=== PATIENT | male | born 1990 | race Caucasian/White ===

== ENCOUNTER 2016-08-22 13:57 | Emergency (ER) | payer OTHER ==
--- NOTE | 2016-08-22 14:35 | ED CLINICAL REPORT ---
Clinical Report - Physicians/Mid Levels [facility] [address] [place] [address] 08/22/2016 13:57 Patient: DA LANDIN Time Seen: 14:21; initial patient contact. Arrived- By private vehicle. Historian- patient. HISTORY OF PRESENT ILLNESS Chief Complaint: CHEST PAIN and DISCOMFORT. It is described as sharp, "pain" and well localized and it is described as located in the left chest area. At its maximum, severity described as moderate and 5 / 10. When seen in the E.D., severity described as moderate. This started just prior to arrival today : Right -sided tenderness and left mid- chest wall tenderness. The tenderness is well-localized. ( states heard pop while moving bed). and is still present but is better now. No nausea, vomiting, difficulty breathing or diaphoresis. The patient has had additional mild, stabbing, well localized, brief left-sided chest pain. No radiation. It has been exacerbated by movement and cough. No similar symptoms previously. Similar symptoms previously: None. Recent medical care: Not recently seen/assessed. REVIEW OF SYSTEMS No fever, chills or cough. All systems otherwise negative, except as recorded above. PAST HISTORY See nurses notes. Problems: Lumbar Strain. Alcohol Intoxication. Substance Abuse. Drug Poisoning. Sprain. Lung Disease. Chest Wall Pain. Corneal Foreign Body. Iritis. Contusion. Immunizations. Impacted Cerumen. Wheelchair Rental Clerk's Burn. Tetanus Status. Asthma. Medications: None. Allergies: None. SOCIAL HISTORY Smoker - current status unknown (cigarette)- less than 1/2 a pack per day. No drug use. ADDITIONAL NOTES The nursing notes have been reviewed with agreement regarding the chief complaint, HPI, ROS, PMH and patient medications and allergies. PHYSICAL EXAM Vital Signs: 08/22/2016 14:16 BP: 112/78. HR: 73. RR: 16. O2 saturation: 100%. Temp: 97.9 F. Pain level now: 8/10. Have been reviewed. Appearance: Alert. Oriented X3. No acute distress. Eyes: Pupils equal, round and reactive to light. Eyes normal inspection. ENT: Ears normal. Neck: Normal inspection. Neck supple. CVS: Normal heart rate and rhythm. Heart sounds normal. Pulses normal. Respiratory: No respiratory distress. Chest pain reproducible with palpation of the costal cartilage, costochondral junction and anterior chest wall, with movement of the trunk and with deep breathing. Breath sounds normal. Abdomen: Soft and nontender. Bowel sounds normal. PROGRESS AND PROCEDURES Course of Care: Patient is stable. Physical exam findings are improved. Symptoms better. CLINICAL IMPRESSION Costochondritis INSTRUCTIONS No strenuous activity for three days until better. No dietary restrictions. (HOWARD wrap for comfort as needed.). Warnings: Further evaluation is necessary. GENERAL WARNINGS: Return or contact your physician immediately if your condition worsens or changes unexpectedly, if not improving as expected, or if other problems arise. Prescription Medications: Hydrocodone/APAP 5mg / 325mg: take 1 orally every 6 hours as needed for pain. Dispense five (5). No refill. Follow-up: Follow up with your doctor Wednesday if not better. Understanding of the discharge instructions verbalized by patient. (Electronically signed by Hedy Teague PA-C 08/22/2016 16:30)
--- NOTE | 2016-08-22 14:35 | ED NURSING NOTES ---
Clinical Report - Nurses [facility] [address] [place] [address] 08/22/2016 13:57 Patient: DA LANDIN TRIAGE Triage time 14:Aug 22 2016. Acuity: LEVEL 4. Chief Complaint: CHEST PAIN. Alert. No acute distress. --14:16 Chantal Timmons R.N. 14:16 08/22/16. BP: 112/78. HR: 73. RR: 16. O2 saturation: 100%. Temp: 97.9 F. Pain level now: 01/07. --14:16 Chantal Timmons R.N. Weight: 58.9 kg stated. Height/Length: 69 inches Per Patient. BMI: 19.2. --14:12 Chantal Timmons R.N. Medications None. --14:14 Chantal Timmons R.N. Allergies None. --14:14 Chantal Timmons R.N. History Arrived by private vehicle. Historian: patient. Accompanied by friend. This started just prior to arrival. No difficulty breathing, nausea, vomiting or cough. Treatment SUPERVISOR GRAIN AND YEAST PLANTS: None. PAST MEDICAL HX: Immunizations: up-to-date. SOCIAL HX: Current every day heavy tobacco smoker (cigarette)- less than 1 pack per day. Occasional alcohol use. No drug use. No infectious disease exposure. SELF HARM ASSESSMENT: A self harm assessment was performed. The patient answered "no" to the question "Do you have thoughts of harming or killing yourself?". FALL RISK ASSESSMENT: Fall risk assessment completed. No fall risk identified. NUTRITIONAL RISK ASSESSMENT: The nutritional risk assessment revealed no deficiencies. FUNCTIONAL ASSESSMENT: Functional assessment: no impairments noted. LEARNING NEEDS ASSESSMENT: The learning needs assessment revealed no barriers. ABUSE ASSESSMENT: Abuse assessment: The patient was asked "Do you feel safe in your home?". SKIN INTEGRITY ASSESSMENT: Skin integrity risk assessment completed. No skin integrity risk identified. --14:16 Chantal Timmons R.N. PROBLEMS: Lumbar Strain. Alcohol Intoxication. Drug Poisoning. Sprain. Lung Disease. Chest Wall Pain. Corneal Foreign Body. Iritis. Contusion. Burn. Immunizations. Impacted Cerumen. Public Relations Supervisor's Burn. Tetanus Status. Asthma. --14:14 Chantal Timmons R.N. Rib Fracture [RuleOut]. --14:14 Chantal Timmons R.N. ADDITIONAL SURGERIES: Dental Surgery. --14:15 Chantal Timmons R.N. Interventions ID band on patient. To room. --14:16 Chantal Timmons R.N. PHYSICAL ASSESSMENT GENERAL / NEURO / PSYCH: Alert. Oriented X 4. Appears in no acute distress. RESPIRATORY: Right -sided tenderness and left mid- chest wall tenderness. The tenderness is well-localized. ( states heard pop while moving bed). CVS: Capillary refill less than 2 seconds. GI / : Abdomen nontender. EXTREMITIES: No lower extremity edema. SKIN: Skin is warm and dry. --14:18 Chantal Timmons R.N. NURSING PROGRESS NOTES Patient gowned. Head of bed elevated. Patient identifiers checked. Call light placed in reach. Side rails up x 1. Bed placed in lowest position. Brakes of bed on. Patient ready for evaluation- chart flagged. --14:18 Chantal Timmons R.N. DISPOSITION / DISCHARGE Departure time: 14:48. Condition at departure: improved. The goals identified in the patient's plan of care were met. No learning barriers present. Discharge instructions provided and reviewed with the patient. Patient verbalized understanding. Written instructions provided in Georgian. The patient was discharged by the physician orthopedic assistant. He was discharged home and accompanied by foreign banknote teller. He left the Emergency Department ambulatory and via private vehicle. Branch Office Manager driving. Patient has no belongings. FALL RISK ASSESSMENT: Fall risk assessment completed. No fall risk identified. --14:48 Nisha Link R.N. 14:45 08/22/16. BP: 112/82 taken on the left arm, while sitting. HR: 77. RR: 18. O2 saturation: 99%. Temp: 97.9 F. Pain level now: 5/10. Additional comments: pt states "minor pain", 10, ribs. . --14:48 Nisha Link R.N. Locked/Released at 08/22/2016 15:58 by Chantal Timmons R.N.
--- NOTE | 2016-08-22 14:35 | ED NURSING NOTES ---
Clinical Report - Nurses [facility] [address] [place] [address] 08/22/2016 13:57 Patient: DA LANDIN TRIAGE Triage time 14:Aug 22 2016. Acuity: LEVEL 4. Chief Complaint: CHEST PAIN. Alert. No acute distress. --14:16 Chantal Timmons R.N. 14:16 08/22/16. BP: 112/78. HR: 73. RR: 16. O2 saturation: 100%. Temp: 97.9 F. Pain level now: 01/07. --14:16 Chantal Timmons R.N. Weight: 58.9 kg stated. Height/Length: 69 inches Per Patient. BMI: 19.2. --14:12 Chantal Timmons R.N. Medications None. --14:14 Chantal Timmons R.N. Allergies None. --14:14 Chantal Timmons R.N. History Arrived by private vehicle. Historian: patient. Accompanied by friend. This started just prior to arrival. No difficulty breathing, nausea, vomiting or cough. Treatment ACCESS SERVICES REPRESENTATIVE: None. PAST MEDICAL HX: Immunizations: up-to-date. SOCIAL HX: Current every day heavy tobacco smoker (cigarette)- less than 1 pack per day. Occasional alcohol use. No drug use. No infectious disease exposure. SELF HARM ASSESSMENT: A self harm assessment was performed. The patient answered "no" to the question "Do you have thoughts of harming or killing yourself?". FALL RISK ASSESSMENT: Fall risk assessment completed. No fall risk identified. NUTRITIONAL RISK ASSESSMENT: The nutritional risk assessment revealed no deficiencies. FUNCTIONAL ASSESSMENT: Functional assessment: no impairments noted. LEARNING NEEDS ASSESSMENT: The learning needs assessment revealed no barriers. ABUSE ASSESSMENT: Abuse assessment: The patient was asked "Do you feel safe in your home?". SKIN INTEGRITY ASSESSMENT: Skin integrity risk assessment completed. No skin integrity risk identified. --14:16 Chantal Timmons R.N. PROBLEMS: Lumbar Strain. Alcohol Intoxication. Drug Poisoning. Sprain. Lung Disease. Chest Wall Pain. Corneal Foreign Body. Iritis. Contusion. Burn. Immunizations. Impacted Cerumen. Cooker Chip's Burn. Tetanus Status. Asthma. --14:14 Chantal Timmons R.N. Rib Fracture [RuleOut]. --14:14 Chantal Timmons R.N. ADDITIONAL SURGERIES: Dental Surgery. --14:15 Chantal Timmons R.N. Interventions ID band on patient. To room. --14:16 Chantal Timmons R.N. PHYSICAL ASSESSMENT GENERAL / NEURO / PSYCH: Alert. Oriented X 4. Appears in no acute distress. RESPIRATORY: Right -sided tenderness and left mid- chest wall tenderness. The tenderness is well-localized. ( states heard pop while moving bed). CVS: Capillary refill less than 2 seconds. GI / : Abdomen nontender. EXTREMITIES: No lower extremity edema. SKIN: Skin is warm and dry. --14:18 Chantal Timmons R.N. NURSING PROGRESS NOTES Patient gowned. Head of bed elevated. Patient identifiers checked. Call light placed in reach. Side rails up x 1. Bed placed in lowest position. Brakes of bed on. Patient ready for evaluation- chart flagged. --14:18 Chantal Timmons R.N. DISPOSITION / DISCHARGE Departure time: 14:48. Condition at departure: improved. The goals identified in the patient's plan of care were met. No learning barriers present. Discharge instructions provided and reviewed with the patient. Patient verbalized understanding. Written instructions provided in Japanese. The patient was discharged by the physician administrative personal assistant. He was discharged home and accompanied by mannequin sander and finisher. He left the Emergency Department ambulatory and via private vehicle. Tutorial Laboratory Supervisor driving. Patient has no belongings. FALL RISK ASSESSMENT: Fall risk assessment completed. No fall risk identified. --14:48 Nisha Link R.N. 14:45 08/22/16. BP: 112/82 taken on the left arm, while sitting. HR: 77. RR: 18. O2 saturation: 99%. Temp: 97.9 F. Pain level now: 5/10. Additional comments: pt states "minor pain", 10, ribs. . --14:48 Nisha Link R.N. Locked/Released at 08/22/2016 15:58 by Chantal Timmons R.N.
--- NOTE | 2016-08-22 16:30 | ED DISCHARGE INSTRUCTIONS ---
Patient: DA LANDIN General Instructions [facility] VisitID: [id number] [place] [address] 26y, M Registration Date/Time: 08/22/2016 Costochondritis INSTRUCTIONS No strenuous activity for three days until better. No dietary restrictions. (HOWARD wrap for comfort as needed.). Warnings: Further evaluation is necessary. GENERAL WARNINGS: Return or contact your physician immediately if your condition worsens or changes unexpectedly, if not improving as expected, or if other problems arise. Prescription Medications: Hydrocodone/APAP 5mg / 325mg: take 1 orally every 6 hours as needed for pain. Dispense five (5). No refill. Follow-up: Follow up with your doctor Wednesday if not better. Understanding of the discharge instructions verbalized by patient. ADDITIONAL INFORMATION Chest Wall Pain: Costochondritis The chest pain that you have had today is caused by Costochondritis. This condition is due to an inflammation of the cartilage joining the ribs to the breastbone. It is not caused by heart or lung problems. Although the exact cause for costochondritis is not known, it often occurs during times of emotional stress. It can be painful, but it is not dangerous. It usually disappears within one to two weeks, but may recur. Rarely, a more serious condition may cause symptoms similar to costochondritis; therefore, watch for the warning signs listed below. Home Care: If you feel that emotional stress is a cause of your condition, try to identify sources of that stress. It may not be obvious! Learn ways to deal with the stress in your life such as regular exercise, muscle relaxation, meditation, or simply taking time out for yourself. For more information about this, consult your doctor or go to a local bookstore and review books and tapes available on the subject of stress reduction. You may use acetaminophen (Tylenol) or ibuprofen (Motrin, Advil) to control pain, unless another pain medicine was prescribed. [ NOTE: If you have liver disease or ever had a stomach ulcer, talk with your doctor before using these medicines.] The use of heat (hot wet compress or heating pad) with or without local analgesic creams (Deep Heat Rub, Branden Jansen) will be helpful to reduce pain. Follow Up with your doctor as directed or sooner if you do not start to improve within the next two days. Get Prompt Medical Attention if any of the following occur: A change in the type of pain: if it feels different, becomes more severe, lasts longer, or spreads into your shoulder, arm, neck, jaw or back Shortness of breath or increased pain with breathing Weakness, dizziness, or fainting Cough with dark colored sputum (phlegm) or blood Abdominal pain Dark red or black stools Fever of 100.4F (38C) or higher, or as directed by your healthcare provider You have been given the following additional information: Chest Wall Pain, Costochondritis No strenuous activity for three days until better. (Electronically signed by Hedy Teague PA-C 08/22/2016 16:30)
--- NOTE | 2016-08-22 16:30 | ED MED RECONCILIATION SUMMARY ---
Patient: DA LANDIN Medication Reconciliation Report [facility] VisitID: [id number] [address] [place] [address] 26y, M Registration Date/Time: 08/22/2016 Weight: 58.9 kg Height/Length: 69 in. BMI: 19.2 ALLERGIES: None The patient's Home Medications are listed below: NONE. The source(s) of the original Home Medication information: Not obtained. The following Medications were given to the patient in the Emergency Department: None. The following Medications were prescribed to the patient: Hydrocodone/APAP 5mg / 325mg: take 1 orally every 6 hours as needed for pain. Dispense five (5). No refill. -- Hedy Teague PA-C
--- NOTE | 2016-08-22 16:30 | ED MAR SUMMARY ---
..... Medication Administration Record [facility] [address] [id number] Patient: MUSHTAQ DA Sung Carmen Visit ID: [id number] 26y, M Weight: 58.9 kg Height/Length: 69 in BMI: 19.2 ALLERGIES: None
--- NOTE | 2016-08-22 16:30 | ED MED RECONCILIATION SUMMARY ---
Patient: DA LANDIN Medication Reconciliation Report [facility] VisitID: [id number] [address] [place] [address] 26y, M Registration Date/Time: 08/22/2016 Weight: 58.9 kg Height/Length: 69 in. BMI: 19.2 ALLERGIES: None The patient's Home Medications are listed below: NONE. The source(s) of the original Home Medication information: Not obtained. The following Medications were given to the patient in the Emergency Department: None. The following Medications were prescribed to the patient: Hydrocodone/APAP 5mg / 325mg: take 1 orally every 6 hours as needed for pain. Dispense five (5). No refill. -- Hedy Teague PA-C
--- NOTE | 2016-08-22 16:30 | ED MAR SUMMARY ---
..... Medication Administration Record [facility] [address] [id number] Patient: MUSHTAQ DA Sung Carmen Visit ID: [id number] 26y, M Weight: 58.9 kg Height/Length: 69 in BMI: 19.2 ALLERGIES: None
== END 2016-08-22 14:48 | disposition home or self-care (01) ==
LOC: ED SRH 13:57
DX: M94.0 Chondrocostal junction syndrome [Tietze] (principal); J45.909 Unspecified asthma, uncomplicated; F17.210 Nicotine dependence, cigarettes, uncomplicated

== ENCOUNTER 2016-11-17 22:03 | Emergency (ER) | payer OTHER ==
--- NOTE | 2016-11-17 23:42 | ED CLINICAL REPORT ---
Clinical Report - Physicians/Mid Levels [facility] [address] [place] [address] 11/17/2016 22:03 Patient: DA LANDIN Time Seen: 2210; initial patient contact. Arrived- By private vehicle. Historian- patient. HISTORY OF PRESENT ILLNESS Chief Complaint: DENTAL PAIN. This started about 2 days and is still present and worsening. It was gradual in onset and has been constant. Pain described as moderate. The patient has had toothache and jaw pain. No swollen jaw or face or facial pain. Similar symptoms previously: Many times. Recent medical care: Not recently seen/assessed. REVIEW OF SYSTEMS No fever or difficulty breathing. All systems otherwise negative, except as recorded above. PAST HISTORY Costochondritis. Lumbar Strain. Alcohol Intoxication. Substance Abuse. Drug Poisoning. Sprain. Lung Disease. Chest Wall Pain. Corneal Foreign Body. Iritis. Contusion. Burn. Immunizations. Impacted Cerumen. State Federal Relations Deputy Director's Burn. Tetanus Status. Asthma. Rib Fracture SURGERIES: Dental Surgery. SOCIAL HISTORY Current every day smoker. ADDITIONAL NOTES The nursing notes have been reviewed. PHYSICAL EXAM Vital Signs: 11/17/2016 22:11 BP: 154/95. HR: 66. RR: 18. O2 saturation: 99%. Temp: 98.1 F. Pain level now: 10/10. Have been reviewed. Hypertensive. Heart rate normal. Respiratory rate normal. Temperature normal. Oxygen saturation normal. Appearance: Alert. No acute distress. Head: Normal external inspection. ENT: Mild, extensive dental decay. Moderate dental tenderness of multiple teeth with gingival tenderness. No gingival induration, swelling or fluctuance. Pharynx normal. Gums normal. No trismus present. Neck: No adenopathy. Skin: No rash. Neuro: Oriented X 3. PROGRESS AND PROCEDURES Dental Nerve Block: Time: 23:41. Per protocol, time-out completed immediately before the procedure. Inferior Alveolar Block. Procedure performed bilaterally. Landmarks were identified. Topical anesthetic applied. Total volume of 5 mL 2% Lidocaine and 0.5% Marcaine infiltrated using a 25-gauge needle. Patient cooperative during procedure. No complications encountered. Excellent anesthesia achieved. Procedure repeated on opposite side. Course of Care: Complete resolution of pain after dental blocks. Disposition: Discharged home in good and improved condition. Condition: good. CLINICAL IMPRESSION Moderate dental pain. Dental caries (localized) INSTRUCTIONS Do not work tomorrow. Prescription Medications: Hydrocodone/APAP 5mg / 325mg: take 1 orally every 6 hours as needed for pain. Dispense fifteen (15). No refill. Amoxicillin 500 mg capsules: take 1 orally every 12 hours for 7 days. No refills. Follow-up: Screening today revealed the patient's blood pressure to be in the hypertensive range. The patient should follow up with a primary care provider for blood pressure management. Follow-up with: [facility], , , , , , Follow up in about two days. Call for an appointment. (Electronically signed by Geovanny Toscano Dr. 11/18/2016 0:48)
--- NOTE | 2016-11-17 23:42 | ED NURSING NOTES ---
Clinical Report - Nurses [facility] [address] [place] [address] 11/17/2016 22:03 Patient: DA LANDIN TRIAGE Triage time 22:11. Acuity: LEVEL 4. Chief Complaint: LEFT LOWER TOOTHACHE and JAW PAIN. --22:18 Keshia Sandoval R.N. 22:11 11/17/16. BP: 154/95 taken on the left arm, while sitting. HR: 66 (regular and normal rate). RR: 18 (regular and unlabored). O2 saturation: 99% on room air. Temp: 98.1 F (oral). Pain level now: 03/09. --22:18 Keshia Sandoval R.N. Weight: 58.9 kg stated. Height/Length: 69 inches Per Patient. BMI: 19.2. --22:14 Keshia Sandoval R.N. Medications Amoxicillin Oral (Capsule 500 mg) 1 capsule, 8 hours. --22:17 Keshia Sandoval R.N. Allergies None. --22:16 Keshia Sandoval R.N. History Arrived by private vehicle. Historian: patient. Unaccompanied. Primary physician ([facility]). This started last night. ( c/o LL jaw pain radiating to right lower jaw and wraps up to left ear. Dental work done 1 month ago on the right did not complete round of amoxicillin). He has had a toothache. PAST MEDICAL HX: Immunizations: up-to-date. SOCIAL HX: Heavy tobacco smoker (cigarette)- less than 1 pack per day. Occasional alcohol use. No drug use. ABUSE ASSESSMENT: No report of abuse. SELF HARM ASSESSMENT: A self harm assessment was performed. The patient answered "no" to the question "Have you recently felt down, depressed, or hopeless?", "Have you noticed less interest or pleasure in doing things?", "Do you have thoughts of harming or killing yourself?", "Are you here because you tried to hurt yourself?", "Have you ever tried to hurt yourself before today?", "Have you recently had thoughts about harming or killing others?" and "Do you have any dangerous items in your possession?". FALL RISK ASSESSMENT: Fall risk assessment completed. No fall risk identified. NUTRITIONAL RISK ASSESSMENT: The nutritional risk assessment revealed no deficiencies. FUNCTIONAL ASSESSMENT: Functional assessment: no impairments noted. LEARNING NEEDS ASSESSMENT: The learning needs assessment revealed no barriers. SKIN INTEGRITY ASSESSMENT: Skin integrity risk assessment completed. No skin integrity risk identified. --22:18 Keshia Sandoval R.N. PROBLEMS: Costochondritis. Lumbar Strain. Alcohol Intoxication. Substance Abuse. Drug Poisoning. Sprain. Lung Disease. Chest Wall Pain. Corneal Foreign Body. Iritis. Contusion. Burn. Immunizations. Impacted Cerumen. Clinical Nursing Assistant's Burn. Tetanus Status. Asthma. --22:17 Keshia Sandoval R.N. Rib Fracture [RuleOut]. --22:17 Keshia Sandoval R.N. ADDITIONAL SURGERIES: Dental Surgery. --22:17 Keshia Sandoval R.N. Interventions ID band on patient. --22:18 Keshia Sandoval R.N. PHYSICAL ASSESSMENT Ambulatory to room. GENERAL / NEURO / PSYCH: Alert. Oriented X 4. Appears in pain. HEENT: Pupils equal, round and reactive to light. Pharynx within normal limits. Voice within normal limits. Mouth within normal limits upon inspection. Moderate dental tenderness of multiple teeth (left lower molar). Localized dental decay (left lower molar area). Mucous membranes are pink. RESPIRATORY: Respirations not labored. CVS: Capillary refill less than 2 seconds. SKIN: Skin is warm and dry. Normal skin turgor. --22:19 Keshia Sandoval R.N. NURSING PROGRESS NOTES Reassurance given to the patient. Two patient identifiers checked. Call light placed in reach. Side rails up x 1. Bed placed in lowest position. Brakes of bed on. Patient ready for evaluation- chart flagged. --22:19 Keshia Sandoval R.N. DISPOSITION / DISCHARGE Departure time: 2344. Condition at departure: improved and stable. No learning barriers present. Discharge instructions provided and reviewed with the patient. Reviewed medication(s) side effects, precautions, dosing and course information. Prescription(s) given to the patient. Reviewed referral to a dentist for followup. Work note given (1 day). Patient verbalized understanding. Written instructions provided in Turkmen. The patient was discharged home and unaccompanied at time of discharge. He left the Emergency Department ambulatory and via private vehicle. Patient driving. --23:52 Keshia Sandoval R.N. 23:50 11/17/16. HR: deferred. RR: deferred. O2 saturation: deferred. Temp: deferred. Pain level now deferred. --23:52 Keshia Sandoval R.N. Locked/Released at 11/17/2016 23:52 by Keshia Sandoval R.N.
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
--- NOTE | 2016-11-18 00:49 | ED MED RECONCILIATION SUMMARY ---
Patient: DA LANDIN Medication Reconciliation Report [facility] VisitID: [id number] [address] [place] [address] 26y, M Registration Date/Time: 11/17/2016 Weight: 58.9 kg Height/Length: 69 in. BMI: 19.2 ALLERGIES: None The patient's Home Medications are listed below: THE FOLLOWING MEDICATIONS NEED TO BE RECONCILED: Amoxicillin Oral (500 mg) 1 capsule, 8 hours The source(s) of the original Home Medication information: Not obtained. The following Medications were given to the patient in the Emergency Department: None. The following Medications were prescribed to the patient: Hydrocodone/APAP 5mg / 325mg: take 1 orally every 6 hours as needed for pain. Dispense fifteen (15). No refill. -- Geovanny Toscano Dr. Amoxicillin 500 mg capsules: take 1 orally every 12 hours for 7 days. No refills. -- Geovanny Toscano Dr.
--- NOTE | 2016-11-18 00:49 | ED MED RECONCILIATION SUMMARY ---
Patient: DA LANDIN Medication Reconciliation Report [facility] VisitID: [id number] [address] [place] [address] 26y, M Registration Date/Time: 11/17/2016 Weight: 58.9 kg Height/Length: 69 in. BMI: 19.2 ALLERGIES: None The patient's Home Medications are listed below: THE FOLLOWING MEDICATIONS NEED TO BE RECONCILED: Amoxicillin Oral (500 mg) 1 capsule, 8 hours The source(s) of the original Home Medication information: Not obtained. The following Medications were given to the patient in the Emergency Department: None. The following Medications were prescribed to the patient: Hydrocodone/APAP 5mg / 325mg: take 1 orally every 6 hours as needed for pain. Dispense fifteen (15). No refill. -- Geovanny Toscano Dr. Amoxicillin 500 mg capsules: take 1 orally every 12 hours for 7 days. No refills. -- Geovanny Toscano Dr.
--- NOTE | 2016-11-18 00:49 | ED DISCHARGE INSTRUCTIONS ---
Patient: DA LANDIN General Instructions [facility] VisitID: [id number] [place] [address] 26y, M Registration Date/Time: 11/17/2016 Moderate dental pain. Dental caries (localized) INSTRUCTIONS Do not work tomorrow. Prescription Medications: Hydrocodone/APAP 5mg / 325mg: take 1 orally every 6 hours as needed for pain. Dispense fifteen (15). No refill. Amoxicillin 500 mg capsules: take 1 orally every 12 hours for 7 days. No refills. Follow-up: Screening today revealed the patient's blood pressure to be in the hypertensive range. The patient should follow up with a primary care provider for blood pressure management. Follow-up with: [facility], , , , , , Follow up in about two days. Call for an appointment. ADDITIONAL INFORMATION Dental Pain A crack or cavity in the tooth, which exposes the sensitive inner area of the tooth can cause tooth pain. An infection in the gum or the root of the tooth can cause pain and swelling. The pain is often made worse by drinking hot or cold fluids, or biting on hard foods. Pain may spread from the tooth to the ear or jaw on the same side. Home Care: Avoid hot and cold foods and liquids since your tooth may be sensitive to temperature changes. If your tooth is chipped or cracked, or if there is a large open cavity, apply OIL OF CLOVES (available qcae-mfe-rjtnpdo in drug stores) directly to the tooth to reduce pain. Some pharmacies carry an fefp-prh-mbqzwxh "toothache kit." This contains a paste, which can be applied over the exposed tooth to decrease sensitivity. A cold pack on your jaw over the sore area may help reduce pain. You may use acetaminophen (Tylenol) or ibuprofen (Motrin, Advil) to control pain, unless another medicine was prescribed. [ NOTE: If you have chronic liver or kidney disease or ever had a stomach ulcer or GI bleeding, talk with your doctor before using these medicines.] If you have signs of an infection, an antibiotic will be given. Take it as directed. Follow-Up as directed with a dentist. Your pain may go away with the treatment given. However, only a dentist can fully evaluate and treat the cause and prevent the pain from coming back again. TOOTHACHE IS A SIGN OF DISEASE IN YOUR TOOTH AND SHOULD BE EXAMINED AND TREATED BY A DENTIST. Get Prompt Medical Attention if any of the following occur: Your face becomes swollen or red Pain worsens or spreads to the neck Fever over 100.4 F (38.0 C) Unusual drowsiness; headache or stiff neck; weakness or fainting Pus drains from the tooth Difficulty swallowing or breathing Dental Cavity A dental cavity is a pit or crater in the enamel surface of the tooth. This exposes the sensitive inner layer of the tooth and causes pain. If untreated, the cavity will get bigger and may cause an infection or abscess in the root of the tooth. An infection in the tooth is a much more serious problem and may require a root canal or removal of the entire tooth. The tooth pain may be made worse by drinking hot or cold fluids. It may spread from the tooth to the ear or jaw on the same side. Home Care: Avoid hot and cold foods, and liquids since your tooth may be sensitive to temperature changes. If your tooth is chipped or cracked, or if there is a large open cavity, apply OIL OF CLOVES (available egyx-dcj-lsgfewz in drug stores) directly to the tooth to reduce pain. Some pharmacies carry an qpry-emv-ilizdzn "toothache kit." This contains oil of cloves and a paste, which can be applied over the exposed tooth to decrease sensitivity. An ice pack on your jaw over the sore area may help to reduce pain. You may use acetaminophen (Tylenol) or ibuprofen (Motrin, Advil) to control pain, unless another pain medicine was prescribed. [ NOTE: If you have liver disease or ever had a stomach ulcer, talk with your doctor before using these medicines.] If you have signs of an infection, an antibiotic will be given. Take it as directed. Follow-Up with your dentist as directed. Although your pain may go away with the treatment given, only a dentist can fully evaluate and treat this problem to prevent further tooth damage. Get Prompt Medical Attention if any of the following occur: Redness or swelling of the face Pain worsens or spreads to the neck Fever over 100.5 F (38C) Unusual drowsiness; headache or stiff neck; weakness or fainting Pus drains from the tooth or gum Difficulty swallowing or breathing Hydrocodone Bitartrate, Acetaminophen Oral tablet What is this medicine? ACETAMINOPHEN; HYDROCODONE (a set a YUMIKO warren fen; lana droe KOE done) is a pain reliever. It is used to treat mild to moderate pain. How should I use this medicine? Take this medicine by mouth. Swallow it with a full glass of water. Follow the directions on the prescription label. If the medicine upsets your stomach, take the medicine with food or milk. Do not take more than you are told to take. Talk to your mechanic regarding the use of this medicine in children. This medicine is not approved for use in children. What side effects may I notice from receiving this medicine? Side effects that you should report to your doctor or health resident care associate as soon as possible: allergic reactions like skin rash, itching or hives, swelling of the face, lips, or tongue breathing problems confusion feeling faint or lightheaded, falls stomach pain yellowing of the eyes or skin Side effects that usually do not require medical attention (report to your doctor or health resident care associate if they continue or are bothersome): nausea, vomiting stomach upset What may interact with this medicine? alcohol antihistamines isoniazid medicines for depression, anxiety, or psychotic disturbances medicines for sleep muscle relaxants naltrexone narcotic medicines (opiates) for pain phenobarbital ritonavir tramadol What if I miss a dose? If you miss a dose, take it as soon as you can. If it is almost time for your next dose, take only that dose. Do not take double or extra doses. Where should I keep my medicine? Keep out of the reach of children. This medicine can be abused. Keep your medicine in a safe place to protect it from theft. Do not share this medicine with anyone. Selling or giving away this medicine is dangerous and against the law. Store at room temperature between 15 and 30 degrees C (59 and 86 degrees F). Protect from light. Keep container tightly closed. Throw away any unused medicine after the expiration date. Discard unused medicine and used packaging carefully. Pets and children can be harmed if they find used or lost packages. What should I tell my health care provider before I take this medicine? They need to know if you have any of these conditions: brain tumor Crohn's disease, inflammatory bowel disease, or ulcerative colitis drink more than 3 alcohol-containing drinks per day drug abuse or addiction head injury heart or circulation problems kidney disease or problems going to the bathroom liver disease lung disease, asthma, or breathing problems an unusual or allergic reaction to acetaminophen, hydrocodone, other opioid analgesics, other medicines, foods, dyes, or preservatives or trying to get breast-feeding What should I watch for while using this medicine? Tell your doctor or health resident care associate if your pain does not go away, if it gets worse, or if you have new or a different type of pain. You may develop tolerance to the medicine. Tolerance means that you will need a higher dose of the medicine for pain relief. Tolerance is normal and is expected if you take the medicine for a long time. Do not suddenly stop taking your medicine because you may develop a severe reaction. Your body becomes used to the medicine. This does NOT mean you are addicted. Addiction is a behavior related to getting and using a drug for a non-medical reason. If you have pain, you have a medical reason to take pain medicine. Your doctor will tell you how much medicine to take. If your doctor wants you to stop the medicine, the dose will be slowly lowered over time to avoid any side effects. You may get drowsy or dizzy when you first start taking the medicine or change doses. Do not drive, use machinery, or do anything that may be dangerous until you know how the medicine affects you. Stand or sit up slowly. There are different types of narcotic medicines (opiates) for pain. If you take more than one type at the same time, you may have more side effects. Give your health care provider a list of all medicines you use. Your doctor will tell you how much medicine to take. Do not take more medicine than directed. Call emergency for help if you have problems breathing. The medicine will cause constipation. Try to have a bowel movement at least every 2 to 3 days. If you do not have a bowel movement for 3 days, call your doctor or health resident care associate. Too much acetaminophen can be very dangerous. Do not take Tylenol (acetaminophen) or medicines that contain acetaminophen with this medicine. Many non-prescription medicines contain acetaminophen. Always read the labels carefully. Amoxicillin Trihydrate Oral tablet What is this medicine? AMOXICILLIN (a mox i ADÁN in) is a penicillin antibiotic. It is used to treat certain kinds of bacterial infections. It will not work for colds, flu, or other viral infections. How should I use this medicine? Take this medicine by mouth with a glass of water. Follow the directions on your prescription label. You may take this medicine with food or on an empty stomach. Take your medicine at regular intervals. Do not take your medicine more often than directed. Take all of your medicine as directed even if you think your are better. Do not skip doses or stop your medicine early. Talk to your mechanic regarding the use of this medicine in children. While this drug may be prescribed for selected conditions, precautions do apply. What side effects may I notice from receiving this medicine? Side effects that you should report to your doctor or health resident care associate as soon as possible: allergic reactions like skin rash, itching or hives, swelling of the face, lips, or tongue breathing problems dark urine redness, blistering, peeling or loosening of the skin, including inside the mouth seizures severe or watery diarrhea trouble passing urine or change in the amount of urine unusual bleeding or bruising unusually weak or tired yellowing of the eyes or skin Side effects that usually do not require medical attention (report to your doctor or health resident care associate if they continue or are bothersome): dizziness headache stomach upset trouble sleeping What may interact with this medicine? amiloride control pills chloramphenicol macrolides probenecid sulfonamides tetracyclines What if I miss a dose? If you miss a dose, take it as soon as you can. If it is almost time for your next dose, take only that dose. Do not take double or extra doses. Where should I keep my medicine? Keep out of the reach of children. Store between 68 and 77 degrees F (20 and 25 degrees C). Keep bottle closed tightly. Throw away any unused medicine after the expiration date. What should I tell my health care provider before I take this medicine? They need to know if you have any of these conditions: asthma kidney disease an unusual or allergic reaction to amoxicillin, other penicillins, cephalosporin antibiotics, other medicines, foods, dyes, or preservatives or trying to get breast-feeding What should I watch for while using this medicine? Tell your doctor or health resident care associate if your symptoms do not improve in 2 or 3 days. Take all of the doses of your medicine as directed. Do not skip doses or stop your medicine early. If you are diabetic, you may get a false positive result for sugar in your urine with certain brands of urine tests. Check with your doctor. Do not treat diarrhea with [id number]-[id number] products. Contact your doctor if you have diarrhea that lasts more than 2 days or if the diarrhea is severe and watery. You have been given the following additional information: Dental Pain Dental Cavity Hydrocodone Bitartrate, Acetaminophen Oral tablet Amoxicillin Trihydrate Oral tablet Do not work tomorrow. (Electronically signed by Geovanny Toscano Dr. 11/18/2016 0:48)
--- NOTE | 2016-11-18 00:49 | ED DISCHARGE INSTRUCTIONS ---
Patient: DA LANDIN General Instructions [facility] VisitID: [id number] [place] [address] 26y, M Registration Date/Time: 11/17/2016 Moderate dental pain. Dental caries (localized) INSTRUCTIONS Do not work tomorrow. Prescription Medications: Hydrocodone/APAP 5mg / 325mg: take 1 orally every 6 hours as needed for pain. Dispense fifteen (15). No refill. Amoxicillin 500 mg capsules: take 1 orally every 12 hours for 7 days. No refills. Follow-up: Screening today revealed the patient's blood pressure to be in the hypertensive range. The patient should follow up with a primary care provider for blood pressure management. Follow-up with: [facility], , , , , , Follow up in about two days. Call for an appointment. ADDITIONAL INFORMATION Dental Pain A crack or cavity in the tooth, which exposes the sensitive inner area of the tooth can cause tooth pain. An infection in the gum or the root of the tooth can cause pain and swelling. The pain is often made worse by drinking hot or cold fluids, or biting on hard foods. Pain may spread from the tooth to the ear or jaw on the same side. Home Care: Avoid hot and cold foods and liquids since your tooth may be sensitive to temperature changes. If your tooth is chipped or cracked, or if there is a large open cavity, apply OIL OF CLOVES (available sucm-vyf-xkpkksd in drug stores) directly to the tooth to reduce pain. Some pharmacies carry an okba-kwy-kxjkwiw "toothache kit." This contains a paste, which can be applied over the exposed tooth to decrease sensitivity. A cold pack on your jaw over the sore area may help reduce pain. You may use acetaminophen (Tylenol) or ibuprofen (Motrin, Advil) to control pain, unless another medicine was prescribed. [ NOTE: If you have chronic liver or kidney disease or ever had a stomach ulcer or GI bleeding, talk with your doctor before using these medicines.] If you have signs of an infection, an antibiotic will be given. Take it as directed. Follow-Up as directed with a dentist. Your pain may go away with the treatment given. However, only a dentist can fully evaluate and treat the cause and prevent the pain from coming back again. TOOTHACHE IS A SIGN OF DISEASE IN YOUR TOOTH AND SHOULD BE EXAMINED AND TREATED BY A DENTIST. Get Prompt Medical Attention if any of the following occur: Your face becomes swollen or red Pain worsens or spreads to the neck Fever over 100.4 F (38.0 C) Unusual drowsiness; headache or stiff neck; weakness or fainting Pus drains from the tooth Difficulty swallowing or breathing Dental Cavity A dental cavity is a pit or crater in the enamel surface of the tooth. This exposes the sensitive inner layer of the tooth and causes pain. If untreated, the cavity will get bigger and may cause an infection or abscess in the root of the tooth. An infection in the tooth is a much more serious problem and may require a root canal or removal of the entire tooth. The tooth pain may be made worse by drinking hot or cold fluids. It may spread from the tooth to the ear or jaw on the same side. Home Care: Avoid hot and cold foods, and liquids since your tooth may be sensitive to temperature changes. If your tooth is chipped or cracked, or if there is a large open cavity, apply OIL OF CLOVES (available ibxi-zcu-mwdokii in drug stores) directly to the tooth to reduce pain. Some pharmacies carry an qvxo-ptu-qibkeea "toothache kit." This contains oil of cloves and a paste, which can be applied over the exposed tooth to decrease sensitivity. An ice pack on your jaw over the sore area may help to reduce pain. You may use acetaminophen (Tylenol) or ibuprofen (Motrin, Advil) to control pain, unless another pain medicine was prescribed. [ NOTE: If you have liver disease or ever had a stomach ulcer, talk with your doctor before using these medicines.] If you have signs of an infection, an antibiotic will be given. Take it as directed. Follow-Up with your dentist as directed. Although your pain may go away with the treatment given, only a dentist can fully evaluate and treat this problem to prevent further tooth damage. Get Prompt Medical Attention if any of the following occur: Redness or swelling of the face Pain worsens or spreads to the neck Fever over 100.5 F (38C) Unusual drowsiness; headache or stiff neck; weakness or fainting Pus drains from the tooth or gum Difficulty swallowing or breathing Hydrocodone Bitartrate, Acetaminophen Oral tablet What is this medicine? ACETAMINOPHEN; HYDROCODONE (a set a YUMIKO warren fen; lana droe KOE done) is a pain reliever. It is used to treat mild to moderate pain. How should I use this medicine? Take this medicine by mouth. Swallow it with a full glass of water. Follow the directions on the prescription label. If the medicine upsets your stomach, take the medicine with food or milk. Do not take more than you are told to take. Talk to your instrument repairer helper regarding the use of this medicine in children. This medicine is not approved for use in children. What side effects may I notice from receiving this medicine? Side effects that you should report to your doctor or health hourly caregiver as soon as possible: allergic reactions like skin rash, itching or hives, swelling of the face, lips, or tongue breathing problems confusion feeling faint or lightheaded, falls stomach pain yellowing of the eyes or skin Side effects that usually do not require medical attention (report to your doctor or health hourly caregiver if they continue or are bothersome): nausea, vomiting stomach upset What may interact with this medicine? alcohol antihistamines isoniazid medicines for depression, anxiety, or psychotic disturbances medicines for sleep muscle relaxants naltrexone narcotic medicines (opiates) for pain phenobarbital ritonavir tramadol What if I miss a dose? If you miss a dose, take it as soon as you can. If it is almost time for your next dose, take only that dose. Do not take double or extra doses. Where should I keep my medicine? Keep out of the reach of children. This medicine can be abused. Keep your medicine in a safe place to protect it from theft. Do not share this medicine with anyone. Selling or giving away this medicine is dangerous and against the law. Store at room temperature between 15 and 30 degrees C (59 and 86 degrees F). Protect from light. Keep container tightly closed. Throw away any unused medicine after the expiration date. Discard unused medicine and used packaging carefully. Pets and children can be harmed if they find used or lost packages. What should I tell my health care provider before I take this medicine? They need to know if you have any of these conditions: brain tumor Crohn's disease, inflammatory bowel disease, or ulcerative colitis drink more than 3 alcohol-containing drinks per day drug abuse or addiction head injury heart or circulation problems kidney disease or problems going to the bathroom liver disease lung disease, asthma, or breathing problems an unusual or allergic reaction to acetaminophen, hydrocodone, other opioid analgesics, other medicines, foods, dyes, or preservatives or trying to get breast-feeding What should I watch for while using this medicine? Tell your doctor or health hourly caregiver if your pain does not go away, if it gets worse, or if you have new or a different type of pain. You may develop tolerance to the medicine. Tolerance means that you will need a higher dose of the medicine for pain relief. Tolerance is normal and is expected if you take the medicine for a long time. Do not suddenly stop taking your medicine because you may develop a severe reaction. Your body becomes used to the medicine. This does NOT mean you are addicted. Addiction is a behavior related to getting and using a drug for a non-medical reason. If you have pain, you have a medical reason to take pain medicine. Your doctor will tell you how much medicine to take. If your doctor wants you to stop the medicine, the dose will be slowly lowered over time to avoid any side effects. You may get drowsy or dizzy when you first start taking the medicine or change doses. Do not drive, use machinery, or do anything that may be dangerous until you know how the medicine affects you. Stand or sit up slowly. There are different types of narcotic medicines (opiates) for pain. If you take more than one type at the same time, you may have more side effects. Give your health care provider a list of all medicines you use. Your doctor will tell you how much medicine to take. Do not take more medicine than directed. Call emergency for help if you have problems breathing. The medicine will cause constipation. Try to have a bowel movement at least every 2 to 3 days. If you do not have a bowel movement for 3 days, call your doctor or health hourly caregiver. Too much acetaminophen can be very dangerous. Do not take Tylenol (acetaminophen) or medicines that contain acetaminophen with this medicine. Many non-prescription medicines contain acetaminophen. Always read the labels carefully. Amoxicillin Trihydrate Oral tablet What is this medicine? AMOXICILLIN (a mox i ADÁN in) is a penicillin antibiotic. It is used to treat certain kinds of bacterial infections. It will not work for colds, flu, or other viral infections. How should I use this medicine? Take this medicine by mouth with a glass of water. Follow the directions on your prescription label. You may take this medicine with food or on an empty stomach. Take your medicine at regular intervals. Do not take your medicine more often than directed. Take all of your medicine as directed even if you think your are better. Do not skip doses or stop your medicine early. Talk to your instrument repairer helper regarding the use of this medicine in children. While this drug may be prescribed for selected conditions, precautions do apply. What side effects may I notice from receiving this medicine? Side effects that you should report to your doctor or health hourly caregiver as soon as possible: allergic reactions like skin rash, itching or hives, swelling of the face, lips, or tongue breathing problems dark urine redness, blistering, peeling or loosening of the skin, including inside the mouth seizures severe or watery diarrhea trouble passing urine or change in the amount of urine unusual bleeding or bruising unusually weak or tired yellowing of the eyes or skin Side effects that usually do not require medical attention (report to your doctor or health hourly caregiver if they continue or are bothersome): dizziness headache stomach upset trouble sleeping What may interact with this medicine? amiloride control pills chloramphenicol macrolides probenecid sulfonamides tetracyclines What if I miss a dose? If you miss a dose, take it as soon as you can. If it is almost time for your next dose, take only that dose. Do not take double or extra doses. Where should I keep my medicine? Keep out of the reach of children. Store between 68 and 77 degrees F (20 and 25 degrees C). Keep bottle closed tightly. Throw away any unused medicine after the expiration date. What should I tell my health care provider before I take this medicine? They need to know if you have any of these conditions: asthma kidney disease an unusual or allergic reaction to amoxicillin, other penicillins, cephalosporin antibiotics, other medicines, foods, dyes, or preservatives or trying to get breast-feeding What should I watch for while using this medicine? Tell your doctor or health hourly caregiver if your symptoms do not improve in 2 or 3 days. Take all of the doses of your medicine as directed. Do not skip doses or stop your medicine early. If you are diabetic, you may get a false positive result for sugar in your urine with certain brands of urine tests. Check with your doctor. Do not treat diarrhea with twty-zlj-aujwjbp products. Contact your doctor if you have diarrhea that lasts more than 2 days or if the diarrhea is severe and watery. You have been given the following additional information: Dental Pain Dental Cavity Hydrocodone Bitartrate, Acetaminophen Oral tablet Amoxicillin Trihydrate Oral tablet Do not work tomorrow. (Electronically signed by Geovanny Toscano Dr. 11/18/2016 0:48)
--- NOTE | 2016-11-18 00:49 | ED MAR SUMMARY ---
..... Medication Administration Record [facility] [address] [place], [place] [id number] Patient: MUSHTAQ DA Morales Visit ID: [id number] 26y, M Weight: 58.9 kg Height/Length: 69 in BMI: 19.2 ALLERGIES: None
--- NOTE | 2016-11-18 00:49 | ED MAR SUMMARY ---
..... Medication Administration Record [facility] [address] [place], [place] [id number] Patient: MUSHTAQ DA Morales Visit ID: [id number] 26y, M Weight: 58.9 kg Height/Length: 69 in BMI: 19.2 ALLERGIES: None
== END 2016-11-17 23:45 | disposition home or self-care (01) ==
LOC: ED SRH 22:03
DX: K08.89 Other specified disorders of teeth and supporting structures (principal); K02.9 Dental caries, unspecified; F17.200 Nicotine dependence, unspecified, uncomplicated

== ENCOUNTER 2016-11-18 05:37 | Emergency (ER) | payer OTHER ==
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
--- NOTE | 2016-11-18 06:23 | ED ORDER SUMMARY ---
..... Patient: DERMATES, DA Morales OrderSheet [facility] VisitID: [id number] [address] [place] [address] 26y, M Registration Date/Time: 11/18/2016 ORDER SHEET Weight: 58.9 kg (stated) Allergies: None GENERAL ORDERS: MEDICATION ORDERS: Toradol IM 60 mg (NOW) (06:13 11/18/2016 Maxx Clay) (Ack 6:14 Geovanna Biggs.Gunnar) (6:19 Geovanna Orr) IV FLUIDS: ORDER SHEET NOTES: [Electronically signed by Geovanny Toscano Dr. (06:24 11/18/2016)] [Electronically signed by Stacia Pritchard R.N. (06:47 11/18/2016)] [Electronically locked/signed by Stacia Pritchard R.N. (06:47 11/18/2016)]
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
--- NOTE | 2016-11-18 06:23 | ED ORDER SUMMARY ---
..... Patient: DERMATES, DA Morales OrderSheet [facility] VisitID: [id number] [address] [place] [address] 26y, M Registration Date/Time: 11/18/2016 ORDER SHEET Weight: 58.9 kg (stated) Allergies: None GENERAL ORDERS: MEDICATION ORDERS: Toradol IM 60 mg (NOW) (06:13 11/18/2016 Maxx Clay) (Ack 6:14 Geovanna Biggs.Gunnar) (6:19 Geovanna Orr) IV FLUIDS: ORDER SHEET NOTES: [Electronically signed by Geovanny Toscano Dr. (06:24 11/18/2016)] [Electronically signed by Stacia Pritchard R.N. (06:47 11/18/2016)] [Electronically locked/signed by Stacia Pritchard R.N. (06:47 11/18/2016)]
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
--- NOTE | 2016-11-18 06:48 | ED DISCHARGE INSTRUCTIONS ---
Patient: DA LANDIN General Instructions [facility] VisitID: [id number] [place] [address] 26y, M Registration Date/Time: 11/18/2016 Chest wall pain INSTRUCTIONS Prescription Medications: Diclofenac 50 mg tablets: take 1 tablet orally every 8 hours as needed for pain or stiffness. Dispense thirty (30). No refill. Follow-up: Follow up with your doctor in about two days. Call for an appointment. Screening today revealed the patient's blood pressure to be in the hypertensive range. The patient should follow up with a primary care provider for blood pressure management. ADDITIONAL INFORMATION Chest Strain A strain of the chest is due to stretching and tearing of the muscle fibers between the ribs. This may occur as a result of severe coughing, strenuous lifting or twisting injuries of the upper back. This usually causes increased pain with movement or deep breathing. This may take a few days to a few weeks to heal. Home Care: Rest. Avoid heavy lifting or strenuous exertion. Avoid any activity that causes pain. If you have a severe cough, use a cough syrup such as Robitussin DM (containing dextromethorphan) unless another cough medicine was prescribed. You may use acetaminophen (Tylenol) or ibuprofen (Motrin, Advil) to control pain, unless another medicine was prescribed. [ NOTE: If you have chronic liver or kidney disease or ever had a stomach ulcer or GI bleeding, talk with your doctor before using these medicines.] Follow Up with your doctor as directed. Get Prompt Medical Attention if any of the following occur: A change in the type of pain: if it feels different, becomes more severe, lasts longer, or begins to spread into your shoulder, arm, neck, jaw or back Shortness of breath or increased pain with breathing Cough with dark colored sputum (phlegm) or blood Weakness, dizziness, or fainting Fever of 100.4F (38C) or higher, or as directed by your healthcare provider You have been given the following additional information: Chest Wall Strain (Electronically signed by Geovanny Toscano Dr. 11/18/2016 6:24)
--- NOTE | 2016-11-18 06:48 | ED MAR SUMMARY ---
..... Medication Administration Record [facility] [address] [place] [address] Patient: DA LANDIN Visit ID: [id number] 26y, M Weight: 58.9 kg Height/Length: 69 in BMI: 19.2 ALLERGIES: None Given 06:18 11/18/2016 Stacia Pritchard R.N. Medication Administered: TORADOL [IM] (KETOROLAC TROMETHAMINE), Dose: 60 mg IM. Medication Ordered: Toradol IM 60 mg (NOW).
--- NOTE | 2016-11-18 06:48 | ED MAR SUMMARY ---
..... Medication Administration Record [facility] [address] [place] [address] Patient: DA LANDIN Visit ID: [id number] 26y, M Weight: 58.9 kg Height/Length: 69 in BMI: 19.2 ALLERGIES: None Given 06:18 11/18/2016 Stacia Pritchard R.N. Medication Administered: TORADOL [IM] (KETOROLAC TROMETHAMINE), Dose: 60 mg IM. Medication Ordered: Toradol IM 60 mg (NOW).
--- NOTE | 2016-11-18 06:48 | ED DISCHARGE INSTRUCTIONS ---
Patient: DA LANDIN General Instructions [facility] VisitID: [id number] [place] [address] 26y, M Registration Date/Time: 11/18/2016 Chest wall pain INSTRUCTIONS Prescription Medications: Diclofenac 50 mg tablets: take 1 tablet orally every 8 hours as needed for pain or stiffness. Dispense thirty (30). No refill. Follow-up: Follow up with your doctor in about two days. Call for an appointment. Screening today revealed the patient's blood pressure to be in the hypertensive range. The patient should follow up with a primary care provider for blood pressure management. ADDITIONAL INFORMATION Chest Strain A strain of the chest is due to stretching and tearing of the muscle fibers between the ribs. This may occur as a result of severe coughing, strenuous lifting or twisting injuries of the upper back. This usually causes increased pain with movement or deep breathing. This may take a few days to a few weeks to heal. Home Care: Rest. Avoid heavy lifting or strenuous exertion. Avoid any activity that causes pain. If you have a severe cough, use a cough syrup such as Robitussin DM (containing dextromethorphan) unless another cough medicine was prescribed. You may use acetaminophen (Tylenol) or ibuprofen (Motrin, Advil) to control pain, unless another medicine was prescribed. [ NOTE: If you have chronic liver or kidney disease or ever had a stomach ulcer or GI bleeding, talk with your doctor before using these medicines.] Follow Up with your doctor as directed. Get Prompt Medical Attention if any of the following occur: A change in the type of pain: if it feels different, becomes more severe, lasts longer, or begins to spread into your shoulder, arm, neck, jaw or back Shortness of breath or increased pain with breathing Cough with dark colored sputum (phlegm) or blood Weakness, dizziness, or fainting Fever of 100.4F (38C) or higher, or as directed by your healthcare provider You have been given the following additional information: Chest Wall Strain (Electronically signed by Geovanny Toscano Dr. 11/18/2016 6:24)
--- NOTE | 2016-11-18 06:48 | ED MED RECONCILIATION SUMMARY ---
Patient: DA LANDIN Medication Reconciliation Report [facility] VisitID: [id number] [address] [place] [address] 26y, M Registration Date/Time: 11/18/2016 Weight: 58.9 kg Height/Length: 69 in. BMI: 19.2 ALLERGIES: None The patient's Home Medications are listed below: THE FOLLOWING MEDICATIONS NEED TO BE RECONCILED: Amoxicillin Oral (500 mg) 1 capsule, 8 hours The source(s) of the original Home Medication information: Not obtained. The following Medications were given to the patient in the Emergency Department: Toradol [IM] IM 60 mg, administered: 11/18/2016 6:18:00 AM The following Medications were prescribed to the patient: Diclofenac 50 mg tablets: take 1 tablet orally every 8 hours as needed for pain or stiffness. Dispense thirty (30). No refill. -- Geovanny Toscano Dr.
--- NOTE | 2016-11-18 06:48 | ED MED RECONCILIATION SUMMARY ---
Patient: DA LANDIN Medication Reconciliation Report [facility] VisitID: [id number] [address] [place] [address] 26y, M Registration Date/Time: 11/18/2016 Weight: 58.9 kg Height/Length: 69 in. BMI: 19.2 ALLERGIES: None The patient's Home Medications are listed below: THE FOLLOWING MEDICATIONS NEED TO BE RECONCILED: Amoxicillin Oral (500 mg) 1 capsule, 8 hours The source(s) of the original Home Medication information: Not obtained. The following Medications were given to the patient in the Emergency Department: Toradol [IM] IM 60 mg, administered: 11/18/2016 6:18:00 AM The following Medications were prescribed to the patient: Diclofenac 50 mg tablets: take 1 tablet orally every 8 hours as needed for pain or stiffness. Dispense thirty (30). No refill. -- Geovanny Toscano Dr.
== END 2016-11-18 06:45 | disposition home or self-care (01) ==
LOC: ED SRH 05:37
DX: R07.89 Other chest pain (principal); F17.210 Nicotine dependence, cigarettes, uncomplicated

== ENCOUNTER 2016-11-19 12:26 | Emergency (ER) | payer OTHER ==
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
--- NOTE | 2016-11-19 14:10 | ED MAR SUMMARY ---
..... Medication Administration Record [facility] [address] [place] [id number] Patient: MUSHTAQ DA Sung Carmen Visit ID: [id number] 26y, M Weight: 58.9 kg Height/Length: 69 in BMI: 19.2 ALLERGIES: None
--- NOTE | 2016-11-19 14:10 | ED MAR SUMMARY ---
..... Medication Administration Record [facility] [address] [place], [place] [id number] Patient: MUSHTAQ DA Sung Carmen Visit ID: [id number] 26y, M Weight: 58.9 kg Height/Length: 69 in BMI: 19.2 ALLERGIES: None
--- NOTE | 2016-11-19 14:10 | ED DISCHARGE INSTRUCTIONS ---
Patient: DA LANDIN General Instructions Located Within [facility] VisitID: [id number] [address] [place] [address] 26y, M Registration Date/Time: 11/19/2016 Dental pain. INSTRUCTIONS (continue with current prescriptions as previously directed). Warnings: GENERAL WARNINGS: Return or contact your physician immediately if your condition worsens or changes unexpectedly, if not improving as expected, or if other problems arise. Specifically return if problem worsens. Follow-up: Blood pressure screening was not performed during this visit because blood pressure screening was precluded by clinical urgency. Understanding of the discharge instructions verbalized by patient. Follow-up with: Shon Dixon D.D.S., Dentistry, , [address] [place] [phone] Follow up tomorrow even if well. Call for an appointment. Summary of care provided to patient. ADDITIONAL INFORMATION Dental Pain A crack or cavity in the tooth, which exposes the sensitive inner area of the tooth can cause tooth pain. An infection in the gum or the root of the tooth can cause pain and swelling. The pain is often made worse by drinking hot or cold fluids, or biting on hard foods. Pain may spread from the tooth to the ear or jaw on the same side. Home Care: Avoid hot and cold foods and liquids since your tooth may be sensitive to temperature changes. If your tooth is chipped or cracked, or if there is a large open cavity, apply OIL OF CLOVES (available sjqy-zph-iqsvpip in drug stores) directly to the tooth to reduce pain. Some pharmacies carry an ylpa-tdv-dripsfu "toothache kit." This contains a paste, which can be applied over the exposed tooth to decrease sensitivity. A cold pack on your jaw over the sore area may help reduce pain. You may use acetaminophen (Tylenol) or ibuprofen (Motrin, Advil) to control pain, unless another medicine was prescribed. [ NOTE: If you have chronic liver or kidney disease or ever had a stomach ulcer or GI bleeding, talk with your doctor before using these medicines.] If you have signs of an infection, an antibiotic will be given. Take it as directed. Follow-Up as directed with a dentist. Your pain may go away with the treatment given. However, only a dentist can fully evaluate and treat the cause and prevent the pain from coming back again. TOOTHACHE IS A SIGN OF DISEASE IN YOUR TOOTH AND SHOULD BE EXAMINED AND TREATED BY A DENTIST. Get Prompt Medical Attention if any of the following occur: Your face becomes swollen or red Pain worsens or spreads to the neck Fever over 100.4 F (38.0 C) Unusual drowsiness; headache or stiff neck; weakness or fainting Pus drains from the tooth Difficulty swallowing or breathing You have been given the following additional information: Dental Pain (Electronically signed by Rachell Ott A.R.N.P. 11/19/2016 14:08)
--- NOTE | 2016-11-19 14:10 | ED DISCHARGE INSTRUCTIONS ---
Patient: DA LANDIN General Instructions [facility] VisitID: [id number] [address] [place] [address] 26y, M Registration Date/Time: 11/19/2016 Dental pain. INSTRUCTIONS (continue with current prescriptions as previously directed). Warnings: GENERAL WARNINGS: Return or contact your physician immediately if your condition worsens or changes unexpectedly, if not improving as expected, or if other problems arise. Specifically return if problem worsens. Follow-up: Blood pressure screening was not performed during this visit because blood pressure screening was precluded by clinical urgency. Understanding of the discharge instructions verbalized by patient. Follow-up with: Shon Dixon D.D.S., Dentistry, , [address] [place] [phone] Follow up tomorrow even if well. Call for an appointment. Summary of care provided to patient. ADDITIONAL INFORMATION Dental Pain A crack or cavity in the tooth, which exposes the sensitive inner area of the tooth can cause tooth pain. An infection in the gum or the root of the tooth can cause pain and swelling. The pain is often made worse by drinking hot or cold fluids, or biting on hard foods. Pain may spread from the tooth to the ear or jaw on the same side. Home Care: Avoid hot and cold foods and liquids since your tooth may be sensitive to temperature changes. If your tooth is chipped or cracked, or if there is a large open cavity, apply OIL OF CLOVES (available qfkn-bwm-pwlkvae in drug stores) directly to the tooth to reduce pain. Some pharmacies carry an stuh-djc-wvqbcrn "toothache kit." This contains a paste, which can be applied over the exposed tooth to decrease sensitivity. A cold pack on your jaw over the sore area may help reduce pain. You may use acetaminophen (Tylenol) or ibuprofen (Motrin, Advil) to control pain, unless another medicine was prescribed. [ NOTE: If you have chronic liver or kidney disease or ever had a stomach ulcer or GI bleeding, talk with your doctor before using these medicines.] If you have signs of an infection, an antibiotic will be given. Take it as directed. Follow-Up as directed with a dentist. Your pain may go away with the treatment given. However, only a dentist can fully evaluate and treat the cause and prevent the pain from coming back again. TOOTHACHE IS A SIGN OF DISEASE IN YOUR TOOTH AND SHOULD BE EXAMINED AND TREATED BY A DENTIST. Get Prompt Medical Attention if any of the following occur: Your face becomes swollen or red Pain worsens or spreads to the neck Fever over 100.4 F (38.0 C) Unusual drowsiness; headache or stiff neck; weakness or fainting Pus drains from the tooth Difficulty swallowing or breathing You have been given the following additional information: Dental Pain (Electronically signed by Rachell Ott A.R.N.P. 11/19/2016 14:08)
--- NOTE | 2016-11-19 14:11 | ED MED RECONCILIATION SUMMARY ---
Patient: DA LANDIN Medication Reconciliation Report [facility] VisitID: [id number] [address] [place] [address] 26y, M Registration Date/Time: 11/19/2016 Weight: 58.9 kg Height/Length: 69 in. BMI: 19.2 ALLERGIES: None The patient's Home Medications are listed below: THE FOLLOWING MEDICATIONS NEED TO BE RECONCILED: Amoxicillin Oral Diclofenac Oral Vicodin Oral The source(s) of the original Home Medication information: Not obtained. The following Medications were given to the patient in the Emergency Department: None. The following Medications were prescribed to the patient: None.
--- NOTE | 2016-11-19 14:11 | ED MED RECONCILIATION SUMMARY ---
Patient: DA LANDIN Medication Reconciliation Report [facility] VisitID: [id number] [address] [place] [address] 26y, M Registration Date/Time: 11/19/2016 Weight: 58.9 kg Height/Length: 69 in. BMI: 19.2 ALLERGIES: None The patient's Home Medications are listed below: THE FOLLOWING MEDICATIONS NEED TO BE RECONCILED: Amoxicillin Oral Diclofenac Oral Vicodin Oral The source(s) of the original Home Medication information: Not obtained. The following Medications were given to the patient in the Emergency Department: None. The following Medications were prescribed to the patient: None.
== END 2016-11-19 13:50 | disposition home or self-care (01) ==
LOC: ED SRH 12:26
DX: K08.89 Other specified disorders of teeth and supporting structures (principal); Z79.1 Long term (current) use of non-steroidal anti-inflammatories (NSAID); F17.210 Nicotine dependence, cigarettes, uncomplicated